=== PATIENT | female | born 1985 | race Two or more races ===

== ENCOUNTER 2016-07-22 13:57 | Emergency (ER) | payer SELFPAY ==
--- NOTE | 2016-07-22 14:22 | ER Document Report ---
ED Medical Screen (RME) - General Stated Complaint: PSYCH EVALUATION Notes: Patient is here for evaluation of suicidal thoughts with no plan. States she did take 5 sleeping pills last night. Patient currently sees Dr. Lim for mental health issues. States similar episodes in past. Denies homicidal thoughts. I have greeted and performed a rapid initial assessment of this patient. A comprehensive ED assessment and evaluation of the patient, analysis of test results and completion of the medical decision making process will be conducted by additional ED providers. - Related Data Allergies/Adverse Reactions: No Known Allergies Allergy (Verified 07/22/16 14:20) Past Medical History Pulmonary Medical History: Reports: Hx Asthma Past Surgical History: Reports: Hx Gynecologic Surgery - laproscopy, Hx Tonsillectomy - Immunizations Hx Diphtheria, Pertussis, Tetanus Vaccination: Yes Physical Exam - General General appearance: Appears well, Alert In distress: None Notes: Mother with patient.
[2016-07-22 14:56] LABS: ABSOLUTE LYMPHOCYTES (AUTO) 2.7 10^3/uL (0.5-4.7); ABSOLUTE MONOCYTES (AUTO) 0.7 10^3/uL (0.1-1.4); ABSOLUTE NEUT (AUTO) 6.7 10^3/uL (1.7-8.2); BASOPHILS % (AUTO) 0.2 % (0-2); EOSINOPHILS % (AUTO) 0.5 % (0-6); HEMATOCRIT 38.6 % (36.0-47.0); HGB HCT DIFFERENCE 0.4; LYMPHOCYTES % (AUTO) 26.5 % (13-45); MEAN CORPUSCULAR HEMOGLOBIN 30.2 pg (27.0-33.4); MEAN CORPUSCULAR HGB CONC 33.6 g/dL (32.0-36.0); MEAN CORPUSCULAR VOLUME 90 fl (80-97); MONOCYTES % (AUTO) 6.9 % (3-13); RED BLOOD COUNT 4.29 10^6/uL (3.72-5.28); RED CELL DISTRIBUTION WIDTH 13.1 % (11.5-14.0); SEGMENTED NEUTROPHILS % (AUTO) 65.9 % (42-78); WHITE BLOOD COUNT 10.2 10^3/uL (4.0-10.5)
[2016-07-22 15:13] LABS: APPEARANCE,URINE SLIGHTLY-CLOUDY; BILIRUBIN,URINE NEGATIVE (NEGATIVE); GLUCOSE, URINE NEGATIVE (NEGATIVE); KETONES,URINE NEGATIVE (NEGATIVE); LEUKOCYTE ESTERASE,URINE NEGATIVE (NEGATIVE); NITRITE,URINE NEGATIVE (NEGATIVE); PROTEIN,URINE NEGATIVE (NEGATIVE); URINE SPECIFIC GRAVITY 1.012; UROBILINOGEN,URINE NEGATIVE mg/dL (<2.0)
[2016-07-22 15:17] LABS: ALANINE AMINOTRANSFERASE 25 U/L (9-52); ALBUMIN 3.9 g/dL (3.5-5.0); ALCOHOL < 10 mg/dL (NONE DETECTED); ALKALINE PHOSPHATASE 85 U/L (38-126); ANION GAP 13 (5-19); ASPARTATE AMINO TRANSFERASE 20 U/L (14-36); BILIRUBIN,DIRECT 0.2 mg/dL (0.0-0.4); BILIRUBIN,TOTAL 0.4 mg/dL (0.2-1.3); BLOOD UREA NITROGEN 11 mg/dL (7-20); CALCIUM 9.3 mg/dL (8.4-10.2); CARBON DIOXIDE 26 mmol/L (22-30); CHLORIDE 103 mmol/L (98-107); CREATININE RESULT 0.83 mg/dL (0.52-1.25); GLUCOSE 100 mg/dL (75-110); POTASSIUM 4.5 mmol/L (3.6-5.0); SODIUM 142.2 mmol/L (137-145); TOTAL PROTEIN 6.8 g/dL (6.3-8.2)
[2016-07-22 15:26] LABS: URINE BARBITURATES SCREEN NEGATIVE; URINE METHADONE SCREEN NEGATIVE; URINE OPIATES LOW NEGATIVE; URINE PHENCYCLIDINE SCREEN NEGATIVE
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
--- NOTE | 2016-07-22 18:24 | EKG REPORT ---
SEVERITY:- NORMAL ECG - SINUS RHYTHM : Confirmed by: Melvin Pandya MD 22-Jul-2016 18:23:54
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
[2016-07-22] MEDS ORDERED: OLANZAPINE 2.5 MG TABLET PO SCH (19:30)
[2016-07-22] MEDS ORDERED: DIVALPROEX SODIUM 250 MG TAB.SR.24H PO SCH (20:00)
[2016-07-22] MEDS ORDERED: LAMOTRIGINE 100 MG TABLET PO SCH (20:00)
--- NOTE | 2016-07-23 10:14 | PSYCHOLOGICAL NOTE ---
Psych Note - Psych Note Psych Note: Conducted check in with patient who remained on a mental health hold overnight to be discharged this morning to attend her [place] [facility] [place] Lim. Patient this morning states she feels better, has rested and denies SI /HI. Patient states she has no thoughts of harming herself and would like her mother to pick her up to go with her to [facility]. Patient is alert and orientated x4. Mood is euthymic with congruent (smiling) affect. Patient denies suicidal ideation and homicidal ideation. Patient denies auditory and visual hallucinations; delusions not noted. Thought process were organized and linear. Conversational speech was WNL for prosody. Eye contact was well maintained. Intellectual abilities appear to be within average range. Attention and focus were good. Insight, judgment, impulse control are fair. 296.80(F31.9) unspecified bipolar and related disorder per history provided by patient Patient is psychiatrically cleared for discharge to follow up with her psychiatric provider. Patient denies SI/HI, states she is well supported with her mother and other family/friends. Patient is agreeable to plan of care and reports no concerns. I consulted with Dr. Sanchez in regards to the care and management of this patient. ED MD is in agreement with disposition and recommendations.
--- NOTE | 2016-07-23 10:14 | ER Document Report ---
Doctor's Note Notes: 07/23/16 10:13 Medical rounds: Chart reviewed and patient interviewed briefly. Patient verbalizes no complaints. Vital signs are satisfactory. Laboratory values are satisfactory. Patient has been evaluated by the psychosocial team, who recommends that she be released to follow-up with her primary behavioral health care provider today. She is medically stable.
[2016-07-23 10:37] VITALS: BP 122/56
== END 2016-07-23 10:36 ==
LOC: ER 13:57
DX: R45.851 Suicidal ideations (principal); J45.909 Unspecified asthma, uncomplicated; F31.9 Bipolar disorder, unspecified; F17.210 Nicotine dependence, cigarettes, uncomplicated
CPT/HCPCS: 93005; 99285; 36415; 80307 ×4; 84703; 85025; 80053; 81001; 93010; J3490 ×3